=== PATIENT | female | born 1970 | race Caucasian/White ===

== ENCOUNTER → 2016-09-22 | Outpatient (CLI) | payer OTHER | LOC: FIMAGING 12:50 → EDSTATUS 12:51 | PROVIDERS: ATTEND Orthopaedic Surgery Orthopaedic Surgery of the Spine | DX: M54.2 Cervicalgia (principal); G89.29 Other chronic pain; M25.78 Osteophyte, vertebrae ==

== ENCOUNTER 2017-06-21 20:46 | Emergency (ER) | payer OTHER ==
[2017-06-21] MEDS ORDERED: NS 1,000 ML IV ONE (21:50)
[2017-06-21] MEDS ORDERED: MAG HYDROX/AL HYDROX/SIMETH 30 ML UDCUP PO ONE (21:50)
[2017-06-21] MEDS ORDERED: HYOSCYAMINE SULFATE 0.125 MG TAB PO ONE (21:50)
[2017-06-21] MEDS ORDERED: LIDOCAINE 2% VISCOUS 15 ML UDCUP PO ONE (21:50)
--- NOTE | 2017-06-21 21:50 | EDPHY ---
H & P Stated Complaint: mid sternal chest pain/ poss GERD HPI/ROS: HPI CHIEF COMPLAINT: Chest discomfort HISTORY OF PRESENT ILLNESS: Patient very pleasant 47-year-old female she has no significant medical history except for GERD, however currently being worked up for rheumatoid arthritis, she presents emergency room with chest discomfort. She describes it as a achiness sensation in the center of her chest. Does not radiate anywhere. She additionally reports that she feels like she cannot take a deep breath in. No pleuritic pain. No hemoptysis. No history of DVT or PE. She denies having any history of cardiovascular disease or premature cardiovascular disease in her family. She states she noticed this discomfort around 9:00 a.m. This chest discomfort in the center of her chest. It lasted all day. Constant, has never went away. She thinks it maybe her GERD, but slightly more intense. She is now in the emergency room at 10:00 p.m. At night. It is not subsided. She has no jaw pain neck pain or arm pain diaphoresis or any other associated symptoms. She describes the discomfort as 2/10 at this time. Past Medical History: GERD Past Surgical History: Breast reduction Social History: Denies daily use of drugs alcohol tobacco. Family History: Noncontributory ROS REVIEW OF SYSTEMS: A comprehensive 10 point review of systems is otherwise negative aside from elements mentioned in the history of present illness. Exam Constitutional appears well nontoxic, triage nursing summary reviewed, vital signs reviewed, awake/alert. Eyes normal conjunctivae and sclera, EOMI, PERRLA. HENT normal inspection, atraumatic, moist mucus membranes, no epistaxis, neck supple/ no meningismus, no raccoon eyes. Respiratory clear to auscultation bilaterally, normal breath sounds, no respiratory distress, no wheezing. Cardiovascular rate normal, regular rhythm, no murmur, no edema, distal pulses normal. Gastrointestinal soft, non-tender, no rebound, no guarding, normal bowel sounds, no distension, no pulsatile mass. Genitourinary no CVA tenderness. Musculoskeletal no midline vertebral tenderness, full range of motion, no calf swelling, no tenderness of extremities, no meningismus, good pulses, neurovascularly intact. Skin pink, warm, & dry, no rash, skin atraumatic. Neurologic awake, alert and oriented x 3, AAOx3, moves all 4 extremities equally, motor intact, sensory intact, CN II-XII intact, normal cerebellar, normal vision, normal speech. Psychiatric normal mood/affect. Heme/Lymph/Immune no lymphadenopathy. Differential diagnosis includes but is not limited to: ACS, atypical chest pain , pneumothorax, pneumonia, pulmonary embolism, aortic dissection, congestive heart failure, tumor, musculoskeletal pain, esophageal pain, GERD, peptic ulcer disease, pancreatitis Medical Decision Making: Plan for this patient IV establishment blood draw, obtain EKG and troponin to rule out acute coronary syndrome, chest x-ray, D- dimer, basic blood work, GI cocktail and re-evaluate. Re-evaluation: EKG interpretation by me on record in [employer] system. Impression time of EKG 2058, sinus rhythm rate of 56, no acute ischemic change however isolated small T-wave inversions V1 V2. No ST elevation no ST depression. 2256: I did reassess this patient at this time. Patient is resting comfortably. She explains to me that did GI cocktail completely eliminated her pain. She states she has no further chest discomfort or throat tightness after the GI cocktail. Her EKG initially is nonischemic very small T-wave inversions V1 V2 otherwise unremarkable EKG. Her chest x-ray does not show anything acute. Her troponin D -dimer negative. I did recommend that we do a repeat troponin EKG at 4:00 hour juan antonio From the initial EKG and troponin given the patient's symptoms. However she states given that improved the GI cocktail is completely resolved she would like to go home. I explained that he could still be cardiac in we should repeat her troponin EKG however she is refusing this. She has been in the emergency room for 2 hr she does state that she is fine with a repeat EKG repeat troponin right nail that will be 2 hr from her previous EKG and troponin. Her symptoms were constant since around 9:00 a.m.. Again I did recommend she re-stays for least another troponin EKG at the 4 hr juan antonio however she is refusing this. She has agreed to do a 2 hr EKG and troponin. Given that her GI cocktail greatly improved her chest comfort and has resolved and her initial EKG troponin D-dimer negative will repeat 1 currently nail at 2: 00 a.m. And if these are normal I will allow her to go home. However she understands she develops severe chest discomfort shortness of breath or feeling worse she needs return emergency room. Additionally I recommend she follows up with Cardiology on outpatient basis. EKG interpretation by me on record in [employer] system. Impression time of EKG 2312, sinus rhythm rate of [address] elevation. No ST depression. Isolated T-wave inversions V1. Similar to previous EKG. Do not appreciate acute ischemia. Source: Patient - Personal History LMP (Females 10-55): 8-14 Days Ago Current Tetanus/Diphtheria Vaccine: Yes Current Tetanus Diphtheria and Acellular Pertussis (TDAP): Yes - Medical/Surgical History Hx Asthma: No Hx Chronic Respiratory Disease: No Hx Diabetes: No Hx Cardiac Disease: No Hx Renal Disease: No Hx Cirrhosis: No Hx Alcoholism: No Hx HIV/AIDS: No Hx Splenectomy or Spleen Trauma: No Other PMH: breast reduction - Social History Smoking Status: Never smoked Constitutional: Initial Vital Signs Temperature (C) 36.5 C 06/21/17 20:48 Heart Rate 62 06/21/17 20:48 Respiratory Rate 16 06/21/17 20:48 Blood Pressure 117/62 06/21/17 20:48 O2 Sat (%) 99 06/21/17 20:48 O2 Delivery Mode Room Air Allergies/Adverse Reactions: cephalexin [From Keflex] Allergy (Verified 06/21/17 20:51) Home Medications: Medication Instructions Recorded Omeprazole 06/21/17 Ranitidine HCl [Zantac] 150 mg PO DAILY #15 tablet 06/21/17 Medical Decision Making - Diagnostics Imaging Results: Imaging Impressions Chest X-Ray 06/21/17 21:50 Impression: Negative portable chest - Data Points Laboratory Results: Laboratory Results 06/21/17 21:46 06/21/17 21:46 06/21/17 06/21/17 06/21/17 23:11 21:46 21:46 WBC RBC Hgb Hct MCV MCH MCHC RDW Plt Count MPV Neut % (Auto) Lymph % (Auto) [place] % (Auto) Eos % (Auto) Baso % (Auto) Nucleat RBC Rel Count Absolute Neuts (auto) Absolute Lymphs (auto) Absolute Monos (auto) Absolute Eos (auto) Absolute Basos (auto) Absolute Nucleated RBC Immature Gran % Immature Gran # PT 12.9 SEC SEC (12.0-15.0) INR 0.95 (0.83-1.16) APTT 26.3 SEC SEC (23.0-38.0) D-Dimer < 0.27 ug/mLFEU ug/mLFEU (0.00-0.50) Sodium 140 mEq/L mEq/L (135-145) Potassium 3.9 mEq/L mEq/L (3.5-5.2) Chloride 100 mEq/L mEq/L (97-110) Carbon Dioxide 28 mEq/l mEq/l (22-31) Anion Gap 12 mEq/L mEq/L (8-16) BUN 16 mg/dL mg/dL (7-23) Creatinine 1.1 mg/dL H mg/dL (0.6-1.0) Estimated GFR 54 Glucose 97 mg/dL mg/dL (70-100) Calcium 9.5 mg/dL mg/dL (8.5-10.4) Magnesium 2.1 mg/dL mg/dL (1.6-2.3) Total Bilirubin 0.5 mg/dL mg/dL (0.1-1.4) Conjugated Bilirubin 0.1 mg/dL mg/dL (0.0-0.5) Unconjugated Bilirubin 0.4 mg/dL mg/dL (0.0-1.1) AST 27 IU/L IU/L (14-46) ALT 38 IU/L IU/L (9-52) Alkaline Phosphatase 42 IU/L IU/L (38-126) Creatine Kinase 93 IU/L IU/L (0-156) CK-MB (CK-2) Fraction 1.90 ng/mL ng/mL (0.00-3.19) Troponin I Pending < 0.012 ng/mL ng/mL (0.000-0.034) NT-Pro-B Natriuret Pep 34 pg/mL pg/mL (0-125) Total Protein 7.4 g/dL g/dL (6.3-8.2) Albumin 4.5 g/dL g/dL (3.5-5.0) Lipase 377 IU/L H IU/L (23-300) 06/21/17 21:46 WBC 6.21 10^3/uL 10^3/uL (3.80-9.50) RBC 4.25 10^6/uL 10^6/uL (4.18-5.33) Hgb 15.0 g/dL g/dL (12.6-16.3) Hct 41.7 % % (38.0-47.0) MCV 98.1 fL fL (81.5-99.8) MCH 35.3 pg H pg (27.9-34.1) MCHC 36.0 g/dL g/dL (32.4-36.7) RDW 12.3 % % (11.5-15.2) Plt Count 261 10^3/uL 10^3/uL (150-400) MPV 9.7 fL fL (8.7-11.7) Neut % (Auto) 45.8 % % (39.3-74.2) Lymph % (Auto) 42.0 % % (15.0-45.0) [place] % (Auto) 9.3 % % (4.5-13.0) Eos % (Auto) 2.1 % % (0.6-7.6) Baso % (Auto) 0.6 % % (0.3-1.7) Nucleat RBC Rel Count 0.0 % % (0.0-0.2) Absolute Neuts (auto) 2.84 10^3/uL 10^3/uL (1.70-6.50) Absolute Lymphs (auto) 2.61 10^3/uL 10^3/uL (1.00-3.00) Absolute Monos (auto) 0.58 10^3/uL 10^3/uL (0.30-0.80) Absolute Eos (auto) 0.13 10^3/uL 10^3/uL (0.03-0.40) Absolute Basos (auto) 0.04 10^3/uL 10^3/uL (0.02-0.10) Absolute Nucleated RBC 0.00 10^3/uL 10^3/uL (0-0.01) Immature Gran % 0.2 % % (0.0-1.1) Immature Gran # 0.01 10^3/uL 10^3/uL (0.00-0.10) PT INR APTT D-Dimer Sodium Potassium Chloride Carbon Dioxide Anion Gap BUN Creatinine Estimated GFR Glucose Calcium Magnesium Total Bilirubin Conjugated Bilirubin Unconjugated Bilirubin AST ALT Alkaline Phosphatase Creatine Kinase CK-MB (CK-2) Fraction Troponin I NT-Pro-B Natriuret Pep Total Protein Albumin Lipase Medications Given: Discontinued Medications Al Hydroxide/Mg Hydroxide (Maalox Susp) 30 ml PO ONCE ONE Stop: 06/21/17 21:51 Last Admin: 06/21/17 22:02 Dose: 30 ml Famotidine (Pepcid) 20 mg IVP EDNOW ONE Stop: 06/21/17 23:06 Last Admin: 06/21/17 23:23 Dose: 20 mg Hyoscyamine Sulfate (Levsin, Hyomax-Sl) 0.25 mg PO ONCE ONE Stop: 06/21/17 21:51 Last Admin: 06/21/17 22:01 Dose: 0.25 mg Sodium Chloride (Ns) 1,000 mls @ 0 mls/hr IV EDNOW ONE; Wide Open PRN Reason: Protocol Stop: 06/21/17 21:51 Last Admin: 06/21/17 22:03 Dose: 1,000 mls Lidocaine (Lidocaine 2% Viscous) 15 ml PO ONCE ONE Stop: 06/21/17 21:51 Last Admin: 06/21/17 22:02 Dose: 15 ml Departure - Departure Disposition: Home, Routine, Self-Care Clinical Impression: Chest pain Qualifiers: Chest pain type: unspecified Qualified Code(s): R07.9 - Chest pain, unspecified Condition: Good Instructions: Chest Pain (ED) Additional Instructions: 1. Return emergency room if you have worsening chest pain shortness of breath fever or feeling worse. 2. Follow up with Cardiology call for an appointment this week. Referrals: ALEXANDRE OSBORNE [Primary Care Provider] - As per Instructions William Kaba MD [Medical Doctor] - As per Instructions Prescriptions: Ranitidine HCl [Zantac] 150 mg PO DAILY #15 tablet
[2017-06-21 21:56] LABS: PLATELET COUNT 261 10^3/uL (150-400)
[2017-06-21 22:06] LABS: CREATINE KINASE 93 IU/L (0-156); INR 0.95 (0.83-1.16); PROTIME(PATIENT) 12.9 SEC (12.0-15.0)
--- NOTE | 2017-06-21 22:18 | CPEKG ---
Heart Rate: 56 RR Interval: 1071 P-R Interval: 152 QRSD Interval: 80 QT Interval: 420 QTC Interval: 406 P [place]: 57 QRS [place]: 83 T Wave [place]: 34 EKG Severity - NORMAL ECG - EKG Impression: SINUS RHYTHM Electronically Signed By: Thierry Florentino 22-Jun-2017 06:39:55
[2017-06-21] MEDS ORDERED: FAMOTIDINE 20 MG/2 ML SDV IVP ONE (23:05)
[2017-06-22 00:27] VITALS: BP 116/80; PULSE 59; RESP 18; TEMP 97.9; O2SAT 96
--- NOTE | 2017-06-24 00:03 | CPEKG ---
Heart Rate: 51 RR Interval: 1176 P-R Interval: 152 QRSD Interval: 84 QT Interval: 460 QTC Interval: 424 P [place]: 31 QRS [place]: 60 T Wave [place]: 13 EKG Severity - NORMAL ECG - EKG Impression: SINUS RHYTHM Electronically Signed By: Jeison Hdz 24-Jun-2017 20:53:02
== END 2017-06-22 00:26 | disposition home or self-care (01) ==
DX: R07.9 Chest pain, unspecified (principal); E86.9 Volume depletion, unspecified
CPT/HCPCS: 96374

== ENCOUNTER → 2018-02-19 | Outpatient (CLI) | payer OTHER | LOC: FIMAGING 16:54 | PROVIDERS: ATTEND Physician Assistant Medical | DX: M51.34 Other intervertebral disc degeneration, thoracic region (principal); M51.36 Other intervertebral disc degeneration, lumbar region ==